=== PATIENT | female | born 1990 | race Asian ===

== ENCOUNTER 2018-05-07 12:34 | Emergency (ER) | payer MEDICAID ==
[~2018-05-07] VITALS: Ht 157.5 cm; Wt 62.6 kg
[2018-05-07 13:13] LABS: BASOPHIL % 0.6 % (0-2); PLATELET COUNT 289 x10^3mcL (130-400)
[2018-05-07 13:27] LABS: CALCIUM 8.9 mg/dL (8.5-10.1); CARBON DIOXIDE 26.4 mmol/L (21-32); CHLORIDE SERUM 103 mmol/L (98-107); CREATININE SERUM 0.6 mg/dL (0.6-1.0); GFR1 > 60 mL/min; GLUCOSE SERUM 99 mg/dL (74-106); POTASSIUM SERUM 3.9 mmol/L (3.5-5.1); SODIUM SERUM 136 mmol/L (136-145)
[2018-05-07 13:28] LABS: microscopic required? YES; urine erythrocyte TRACE (NEGATIVE)
[2018-05-07 14:55] VITALS: BP 115/62
== END 2018-05-07 14:55 | disposition home or self-care (01) ==
LOC: ED 12:34
PROVIDERS: Emergency Medicine
DX: O23.591 Infection of other part of genital tract in pregnancy, first trimester (principal); Z3A.10 10 weeks gestation of pregnancy
CPT/HCPCS: 36415; 87491; 87591